=== PATIENT | male | born 1955 | race Two or more races ===

== ENCOUNTER 2021-04-24 07:34 | Outpatient (CLI) | payer OTHER | END 2021-04-24 07:37 | disposition home or self-care (01) | LOC: NUCLEAR 07:34 | PROVIDERS: ATTEND Urology | DX: I25.10 Atherosclerotic heart disease of native coronary artery without angina pectoris (principal); R31.0 Gross hematuria | CPT/HCPCS: 78452; 93017; A9500 ==

== ENCOUNTER 2021-11-24 10:00 | Outpatient (CLI) | payer OTHER | END 2021-11-24 10:10 | disposition home or self-care (01) | LOC: PPH VACUNA 10:00 | PROVIDERS: ATTEND Emergency Medicine Pediatric Emergency Medicine | DX: Z23 Encounter for immunization (principal) ==